=== PATIENT | male | born 1970 | race Caucasian/White ===

== ENCOUNTER 2023-06-06 00:37 | Emergency (ER) | payer BC ==
[~2023-06-06] VITALS: Ht 170.1 cm; Wt 82.6 kg
[~2023-06-06 00:37] MED LIST: ALLEGRA60 M2 PO; ATORVASTATIN CA40 M1 PO; DEXILANT60 M1 PO
[2023-06-06] MEDS ORDERED: ASPIRIN81 M1 PO (01:12)
[2023-06-06] MEDS ORDERED: LIPITOR80 MG PO (01:12)
[2023-06-06] MEDS ORDERED: CEPHALEXIN500 M1 PO (01:23)
== END 2023-06-06 02:05 | disposition home or self-care (01) ==
LOC: ED 00:37
DX: L03.031 Cellulitis of right toe (principal); E78.00 Pure hypercholesterolemia, unspecified